=== PATIENT | female | born 1950 | race Caucasian/White ===

== ENCOUNTER 2021-04-28 08:37 | Outpatient (CLI) | payer MEDICARE, SELFPAY ==
--- NOTE | 2021-04-28 15:00 | CYSPIN_PTH ---
PATIENT: CARLOS MANUEL FINE LOC: [facility] U#:[id number] AGE/SX: 70/F ROOM: RE04/28/[address]: Dr. Silva Horton MD : 1950 BED: DIS: 04/28/2021 SPEC #: [id number] RECD: 04/29/21 07:24 STATUS: RANJAN ADAMES #: [id number] PEDRO: 04/28/21 15:[address]: Silva Horton DEPT: CYTOLOGY RECD BY: Kathrin Sutton Tissues: Urine Procedures: Pap Stain (control) Special Stain Group II Cytospin Fluid HEADER OPERATION: Not noted PRE-OP DIAGNOSIS: Gross hematuria TISSUE SUBMITTED: Urine for cytology DIAGNOSIS CYTOLOGY Urine for cytology (cytospin): Rare atypical urothelial cells present, favor reactive. Abundant squamous epithelial cells. Acute inflammatory cells and bacterial colonies. See comment. AM:rodo 04/29/2021 COMMENT Clinical correlation is suggested. CYTOLOGY STUDY Slides are reviewed. CYTOLOGY GROSS Received is 40 ml of cloudy yellow fluid labeled with the patient's name and and designated per the requisition as urine. Submitted for cytology preparation. / rodo 04/28/2021 TC:2 CPT: 24428
[2021-04-28 16:34] LABS: Cytology, Body Fluid / CSF SEE PATHOLOGY REPORT
== END 2021-04-28 23:59 | disposition home or self-care (01) ==
LOC: LABSPEC 04-29 08:41
PROVIDERS: Visit Provider Urology
DX: R31.0 Gross hematuria (principal)
CPT/HCPCS: 88108; 88313

== ENCOUNTER 2021-05-11 13:29 | Outpatient (CLI) | payer MEDICARE, SELFPAY ==
--- NOTE | 2021-05-11 13:31 | US_ITS ---
STUDY: ULTRASOUND OF THE FEMALE PELVIS - COMPLETE REASON FOR EXAM: Female, 70 years old. gross hematuria, pt states Dr is unsure of origin of the blood. PMB TECHNIQUE: Endovaginal. Transvaginal US was obtained to better visualized the ovaries. COMPARISON: None. FINDINGS: The uterus is anteverted and is tilted to the left side of the pelvis. The uterus measures 6.1 x 4.3 cm. There is a Nabothian cyst of the cervix. These appear complex or debris-filled. These measure 8 x 9 mm and 13 x 8 mm. The endometrium measures 2 mm in thickness, and is fluid distended. There is no demonstrated endometrial mass. There is no demonstrated myometrial mass. I.U.D. - The patient does not have an I.U.D. There is nonvisualization of the right ovary due to overlying bowel gas. There is nonvisualization of the left ovary due to overlying bowel gas. There is no fluid in the cul-de-sac. The urinary bladder is distended. This can suggest urinary retention. US/Pelvic (Non ) IMPRESSION: There is a Nabothian cyst of the cervix. These appear complex or debris-filled. Given the patient''s history, colposcopy is recommended. There is endometrial fluid. This is abnormal for the patient''s age if she is postmenopausal. Direct visualization is recommended to exclude an underlying mass. Electronically Signed: Julian Arnold MD at 17:04 EST ,
--- NOTE | 2021-05-11 13:44 | US_ITS ---
STUDY: ULTRASOUND OF THE FEMALE PELVIS - COMPLETE REASON FOR EXAM: Female, 70 years old. gross hematuria, pt states Dr is unsure of origin of the blood. PMB TECHNIQUE: Endovaginal. Transvaginal US was obtained to better visualized the ovaries. COMPARISON: None. FINDINGS: The uterus is anteverted and is tilted to the left side of the pelvis. The uterus measures 6.1 x 4.3 cm. There is a Nabothian cyst of the cervix. These appear complex or debris-filled. These measure 8 x 9 mm and 13 x 8 mm. The endometrium measures 2 mm in thickness, and is fluid distended. There is no demonstrated endometrial mass. There is no demonstrated myometrial mass. I.U.D. - The patient does not have an I.U.D. There is nonvisualization of the right ovary due to overlying bowel gas. There is nonvisualization of the left ovary due to overlying bowel gas. There is no fluid in the cul-de-sac. The urinary bladder is distended. This can suggest urinary retention. US/Transvaginal Non- IMPRESSION: There is a Nabothian cyst of the cervix. These appear complex or debris-filled. Given the patient''s history, colposcopy is recommended. There is endometrial fluid. This is abnormal for the patient''s age if she is postmenopausal. Direct visualization is recommended to exclude an underlying mass. Electronically Signed: Julian Arnold MD at 17:04 EST ,
== END 2021-05-11 23:59 | disposition home or self-care (01) ==
PROVIDERS: Referring Provider Urology; Visit Provider Urology
DX: N93.9 Abnormal uterine and vaginal bleeding, unspecified (principal)
CPT/HCPCS: 76830; 76856

== ENCOUNTER 2021-10-21 10:43 | Day surgery (SDC) | payer MEDICARE, SELFPAY ==
[2021-10-21 11:07] VITALS: BP 145/75; PULSE 72; RESP 16; TEMP 36.3; O2SAT 99; BMI 24.3
[2021-10-21] MEDS: Lactated Ringers 1,000 ML 15 ML IV (11:11)
[2021-10-21] MEDS: Cefazolin 2 GM in 0.9% Normal Saline 100 ML IV (14:02)
--- NOTE | 2021-10-21 14:05 | DCINST_ITS ---
Discharge Instructions Diet Discharge Diet: No restrictions Activity Discharge Activity: Return to Normal Activity May resume sexual activity in: No Restrictions Dressing / Incision Call your doctor if you observe: Fever of 101 or Higher, Inability to urinate and Inability to have a bowel movement Follow Up Care Please Follow Up With: Silva Horton MD When: Call office for appointment Test Results: Test results from this visit will be discussed in further detail at your follow- up appointment, if applicable. Discharge Plan Admission Attending Provider: Silva Horton Primary Care Provider: NAZARIO MUÑOZ Discharge Orders/Prescriptions Prescriptions: New oxycodone-acetaminophen [Percocet] 5-325 mg tablet 1 tab PO Q8H PRN (Reason: pain) 3 Days Qty: 10 0RF cephalexin [cephalexin] 500 mg capsule 500 mg PO Q12 3 Days Qty: 6 0RF phenazopyridine [Pyridium] 200 mg tablet 200 mg PO TID PRN PRN (Reason: Bladder Spasms) 7 Days Qty: 30 0RF Continued atorvastatin 10 mg Tablet 10 mg PO QHS paroxetine HCl [Paxil] 20 mg Tablet 20 mg PO QHS Referrals / Follow Up: NAZARIO MUÑOZ [Other] Disposition Disposition (needs filled in before D/C Order can be placed): Home, Self Care
--- NOTE | 2021-10-21 14:40 | CYSPIN_PTH ---
PATIENT: CARLOS MANUEL FINE LOC: [facility] [place] U#:[id number] AGE/SX: 71/F ROOM: RE10/21/[address]: Dr. Silva Horton MD : 1950 BED: DIS: 10/21/2021 SPEC #: [id number] RECD: 10/22/21 08:58 STATUS: RANJAN ADAMES #: [id number] PEDRO: 10/21/21 14:[address]: Silva Horton DEPT: CYTOLOGY RECD BY: Kathrin Sutton Tissues: A - Urine B - Urine Procedures: Pap Stain (control) Special Stain Group II Cytospin Fluid HEADER OPERATION: Not noted PRE-OP DIAGNOSIS: Gross hematuria, R31.0 TISSUE SUBMITTED: A. Urine, right renal pelvis, B. Left renal pelvic, urine DIAGNOSIS CYTOLOGY A. Urine, right renal pelvis (cytospin): A few clusters mildly atypical urothelial cells noted (Candace system category 3) See comment. B. 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 COMMENT The Candace System for urine cytology diagnostic categorization was used in the evaluation of this case. Correlation with clinical findings and appropriate follow up are necessary. Case has been reviewed in consultation with Dr. Pinto who concurs with the above diagnosis. IDC:AM CYTOLOGY STUDY Slides are reviewed. CYTOLOGY GROSS A. Received is 5 cc of clear colorless fluid labeled with the patient's name and and designated per the requisition as right renal pelvis. Submitted for cytology preparation. B. Received is 10 cc of clear colorless fluid labeled with the patient's name and and designated per the requisition as left renal pelvic. Submitted for cytology preparation. TC:0 CW:cc 10/22/21 CPT: 47284 x2
--- NOTE | 2021-10-21 14:40 | CYSPIN_PTH ---
PATIENT: CARLOS MANUEL FINE [place] [facility] [place][id number] AGE/SX: 71/F ROOM: RE10/21/[address]: Dr. Silva Horton MD : 1950 BED: DIS: 10/21/2021 SPEC #: [id number] RECD: 10/22/21 08:58 STATUS: RANJAN ADAMES #: [id number] PEDRO: 10/21/21 14:[address]: Silva Horton DEPT: CYTOLOGY RECD BY: Kathrin Sutton Tissues: A - Urine B - Urine Procedures: Pap Stain (control) Special Stain Group II Cytospin Fluid HEADER OPERATION: Not noted PRE-OP DIAGNOSIS: Gross hematuria, R31.0 TISSUE SUBMITTED: A. Urine, right renal pelvis, B. Left renal pelvic, urine DIAGNOSIS CYTOLOGY A. Urine, right renal pelvis (cytospin): A few clusters mildly atypical urothelial cells noted (Candace system category 3) See comment. B. 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 SJ:sj 10/22/21 COMMENT The Candace System for urine cytology diagnostic categorization was used in the evaluation of this case. Correlation with clinical findings and appropriate follow up are necessary. Case has been reviewed in consultation with Dr. Pinto who concurs with the above diagnosis. IDC:AM CYTOLOGY STUDY Slides are reviewed. CYTOLOGY GROSS A. Received is 5 cc of clear colorless fluid labeled with the patient's name and and designated per the requisition as right renal pelvis. Submitted for cytology preparation. B. Received is 10 cc of clear colorless fluid labeled with the patient's name and and designated per the requisition as left renal pelvic. Submitted for cytology preparation. TC:0 CW:cc 10/22/21 CPT: 46359 x2
[2021-10-21 14:57] VITALS: BP 145/75; BP 150/88; PULSE 79; RESP 16; TEMP 36.1; O2SAT 95
[2021-10-21 15:00] VITALS: BP 145/75; BP 153/77; PULSE 87; RESP 16; O2SAT 97
[2021-10-21 15:13] LABS: Cytology, Body Fluid / CSF SEE PATHOLOGY REPORT
[2021-10-21 15:13] LABS: Cytology, Body Fluid / CSF SEE PATHOLOGY REPORT
[2021-10-21 15:15] VITALS: BP 145/75; BP 151/83; PULSE 56; RESP 16; O2SAT 95
--- NOTE | 2021-10-21 15:18 | OP.PCM_ITS ---
Report of Operation Date of Procedure: 10/21/21 Pre-Operative Diagnosis: Gross hematuria Post-Operative Diagnosis: Same Surgery/Procedure Performed:: Cystoscopy, bilateral selective cytology, bilateral ureteroscopy, bilateral ureteral stent insertions Surgeon: Silva Horton Type of Anesthesia: General Specimen's removed: Bilateral renal pelvic washings for cytology Description of Procedure: The patient is a 71-year-old female with gross hematuria unknown etiology who presents for further evaluation. Informed consent was obtained. The patient was taken to the operating room and placed on the operating room table. Anesthesia monitored the head, neck, airway, IV access and vital signs throughout the case. Once anesthesia was appropriate ministered the patient was placed into dorsolithotomy position was prepped and draped in usual sterile fashion. The cystoscope was inserted through the urethra under direct visualization into the urinary bladder. The bladder mucosa was visualized once again and found to be within normal limits without evidence of mass, erythema or abnormality. At this time the left ureteral orifice was gently cannulated with a Pollick catheter which was easily advanced to 24 centimeters. Sterile saline was used to flush the renal pelvis and the washings were sent for cytologic evaluation. The Pollick catheter was removed and replaced with a 0.035 Glidewire. The flexible ureteroscope was then inserted over the guidewire. Access was obtained all the way to the mid ureter at which point to the ureter narrowed and access was unable to be obtained to the renal pelvis. There is a portion of the ureter that was directly visualized and was found to be within normal limits without evidence of mass or foreign body. The Glidewire was then used for placement of a 6 Mongolian 26 cm JJ stent. There was good curling in the renal pelvis as well as the urinary bladder. A brand-new Pollick catheter was then inserted on the patient's right side and advanced easily to 24 cm. Sterile saline washings were then taken and sent for cytologic evaluation from the right renal pelvis. A brand-new Glidewire was then inserted and the ureteroscope was placed over the wire with access obtained to the renal pelvis. There was some mild bleeding observed. There was no large renal mass identified. There was difficulty with visualization secondary to the bleeding present. The decision was made to place a ureteral stent and evaluate again later. A 6 Mongolian 26 cm JJ stent was inserted with good curling in the renal pelvis as well as the urinary bladder. The patient's bladder was emptied and the case was terminated. The patient was then awakened and taken to the recovery room in good condition. There were no complications during this procedure. Grafts/Implants Used: 6 x 26 cm JJ stents x2 Complications None Admit VTE Documentation VTE Present on Admission: Yes VTE Mechan Device Prophylaxis: SCD's VTE Pharm Prophylaxis ordered?: No Reason prophylaxis not ordered:: Treatment Not Indicated
[2021-10-21 15:27] VITALS: BP 145/75; BP 159/90; PULSE 56; RESP 16; TEMP 36.4; O2SAT 100
[2021-10-21 16:00] VITALS: BP 145/75
[2021-10-21] MEDS: Phenazopyridine 95 MG Tablet 190 MG PO (16:01)
== END 2021-10-21 16:45 | disposition home or self-care (01) ==
LOC: SDC 10:44 → AC 10:48
PROVIDERS: Referring Provider Urology; Visit Provider Urology
PROC: (CPT 52353; principal; 2021-10-21 12:10)
DX: R31.0 Gross hematuria (principal); N39.0 Urinary tract infection, site not specified; N39.46 Mixed incontinence; N95.2 Postmenopausal atrophic vaginitis; N94.11 Superficial (introital) dyspareunia; E78.00 Pure hypercholesterolemia, unspecified; K58.9 Irritable bowel syndrome, unspecified; F32.A Depression, unspecified; F41.9 Anxiety disorder, unspecified; Z79.899 Other long term (current) drug therapy
CPT/HCPCS: 52332; 00910; 76000; 87426; 88108; 88313; J7120; C2617; J2405

== ENCOUNTER 2021-10-28 10:40 | Day surgery (SDC) | payer MEDICARE, SELFPAY ==
[2021-10-28] MEDS: Lactated Ringers 1,000 ML 15 ML IV (10:45)
[2021-10-28 11:05] VITALS: BP 120/73; PULSE 78; RESP 16; TEMP 37.1; O2SAT 96; BMI 23.6
--- NOTE | 2021-10-28 12:11 | HP.PCM_ITS ---
HPI - General HPI Narrative CARLOS MANUEL FINE, is a 71 F who presents for diagnostic ureteroscopy for evaluation of gross hematuria after being unable to achieve access to the left renal pelvis last week. Informed consent has been obtained. [facility] Medical History (Updated 10/21/21 @ 14:[address] Silva Horton MD) Anxiety Bladder disease Gross hematuria Heartburn High cholesterol Non-smoker Post-menopausal Shortness of breath on exertion Wears glasses Home Medications atorvastatin 10 mg tablet 10 mg PO QHS 10/14/21 [History Last Taken Unknown] paroxetine HCl 20 mg tablet (Paxil) 20 mg PO QHS 10/14/21 [History Last Taken Unknown] phenazopyridine 200 mg tablet (Pyridium) 200 mg PO TID PRN PRN Bladder Spasms 7 days #30 tabs 10/21/21 [Rx Last Taken Unknown] ibuprofen 200 mg tablet 200 mg PO Q6H PRN Pain 10/26/21 [History Last Taken Unknown] Allergy/AdvReac Type Severity Reaction Status Date / Time No Known Allergies Allergy Verified 10/28/21 11:02 Surgical History (Updated 10/26/21 @ 08:16 by Mary Ro) History of cystoscopy History of cystoscopy Hx of colonoscopy Social History Smoking Status: Never smoker ROS Constitutional Constitutional: Denies anorexia, chills, fatigue, fever(s), lethargy or malaise Eyes Eyes: Reports systems reviewed and no addt'l complaints, except as documented ENT HEENT: Reports systems reviewed and no addt'l complaints, except as documented Cardiovascular Cardiovascular: Denies abdominal pain, chest pain, dizziness or dyspnea Respiratory/Chest Respiratory/Chest: Denies chest congestion, chest tightness, cough or dyspnea Gastrointestinal Gastrointestinal: Denies abdominal pain, nausea or vomiting Genitourinary Genitourinary: Reports hematuria Musculoskeletal Musculoskeletal: Reports systems reviewed and no addt'l complaints, except as documented Integumentary Integumentary: Reports systems reviewed and no addt'l complaints, except as documented Neurologic Neurologic: Reports systems reviewed and no addt'l complaints, except as documented Psychiatric Psychiatric: Reports systems reviewed and no addt'l complaints, except as documented Endocrine Endocrinology: Reports systems reviewed and no addt'l complaints, except as documented Hematologic/Lymphatic Hematologic/Lymphatic: Reports systems reviewed and no addt'l complaints, except as documented Allergic/Immunologic Allergic/Immunologic: Reports systems reviewed and no addt'l complaints, except as documented Vital Signs Vital Signs Vital Signs: 10/28/21 11:05 10/28/21 11:05 Temperature 98.7 F Temperature Source Temporal Pulse Rate 78 Respiratory Rate 16 Respiratory Pattern Normal Blood Pressure 120/73 Blood Pressure Mean 88 Blood Pressure Source Monitor Blood Pressure Position Semi-Fowlers Blood Pressure Location Left Arm Pulse Ox 96 Oxygen Delivery Method Room Air Weight Weight: 62.596 kg Body Mass Index (BMI) 23.6 Physical Exam Const alert, oriented x3 and no apparent distress General Appearance: cooperative, comfortable, well kempt and well developed HEENT normocephalic, head/scalp atraumatic, hearing grossly normal bilaterally, external ears normal, external nose normal and moist oral mucous membranes Eyes no scleral icterus General Eye: normal appearance of both eyes Neck supple General: normal visual inspection and trachea midline Lymph Lymphatic: no lymphedema noted Chest inspection of chest normal Chest: symmetrical chest wall rise Resp normal respiratory effort, normal air movement and no retractions Cardio regular rate and regular rhythm GI soft to palpation, non-tender and non-distended no CVA tenderness Back/Spine no CVA tenderness Extremity normal to inspection Skin no rashes or lesions noted, no wounds and skin turgor normal Neuro oriented x3, CN's II-XII intact bilaterally and moves all extremities Psych mental status grossly normal, thought process normal and cooperative Assessment & Plan Assessment/Plan (1) Gross hematuria: PLAN: Plan Cystoscopy, bilateral diagnostic ureteroscopy, bilateral ureteral stent removal Procedure Criteria Type of Procedure Procedure Type: Elective Elective Risks - COVID COVID Risk Discussion: The surgeon/proceduralist and patient have discussed in detail the risk of exposure to and/or potential harm posed by the COVID-19 virus with having a surgery/procedure at this time versus the risk of delaying the surgery/procedure. It is not possible to know either the risk of delaying the surgery or procedure or chance of getting an infection with perfect accuracy, but a joint decision was made between the patient and the surgeon/proceduralist to proceed at this time with the scheduled surgery/procedure as indicated on the consent form.
--- NOTE | 2021-10-28 12:14 | OP.PCM_ITS ---
Report of Operation Date of Procedure: 10/28/21 Pre-Operative Diagnosis: Gross hematuria Post-Operative Diagnosis: Same Surgery/Procedure Performed:: Cystoscopy, bilateral ureteroscopy, right retrograde pyelogram, bilateral ureteral stent removal Surgeon: Silva Horton Type of Anesthesia: General Description of Procedure: The patient is a 71-year-old female with gross hematuria who was taken to the operating room 1 week ago for bilateral selective cytology, bilateral ureteroscopy and stent insertions. We were unable to visualize the left kidney directly at that time due to ureteral narrowing. She now presents for cystoscopy with ureteral stent removal and bilateral ureteroscopy. Informed consent was obtained. The patient was taken to the operating room and placed on the operating room table. Anesthesia monitored the head, neck, airway, IV access and vital signs throughout the case. Once anesthesia was appropriate ministered, the patient was placed into dorsal lithotomy position was prepped and draped in usual sterile fashion. The cystoscope was inserted through the urethra under direct visualization into the urinary bladder. The right ureteral stent was grasped and pulled to the urethra where it was intubated with a 0.035 Glidewire. The stent was then removed. The ureteroscope was inserted over the guidewire with access all the way to the renal pelvis with easy advancement. Direct visualization of the renal pelvis and the calyces was performed. There is no evidence of mass, polyp or other abnormality present. The length of the ureter was visualized directly and also found to be within normal limits. Contrast was injected to be sure that all calyces were directly visualized. This process was then repeated on the patient's left side. Once again all c alyces were directly visualized without evidence of abnormality including mass, foreign body or abnormality. The entire length of the ureter on the left was directly visualized as well. At this time the patient's bladder was emptied and the case was terminated. The patient tolerated the procedure without complications. She was awakened and taken to the recovery room in good condition. Grafts/Implants Used: none Complications None Admit VTE Documentation VTE Present on Admission: Yes VTE Mechan Device Prophylaxis: SCD's
[2021-10-28] MEDS: Cefazolin 2 GM in 0.9% Normal Saline 100 ML IV (12:30)
[2021-10-28 12:57] VITALS: BP 113/60; BP 120/73; PULSE 72; RESP 16; TEMP 36.1; O2SAT 100
[2021-10-28 13:00] VITALS: BP 120/73; BP 121/59; PULSE 72; RESP 16; O2SAT 96
[2021-10-28 13:15] VITALS: BP 120/73; BP 121/61; PULSE 83; RESP 16; O2SAT 94
[2021-10-28 13:20] VITALS: BP 120/73; BP 122/65; PULSE 82; RESP 16; TEMP 36.4; O2SAT 96
--- NOTE | 2021-10-28 13:20 | DCINST_ITS ---
Discharge Instructions Diet Discharge Diet: No restrictions Activity Discharge Activity: Return to Normal Activity Dressing / Incision Call your doctor if you observe: Fever of 101 or Higher, Inability to urinate and Inability to have a bowel movement Follow Up Care Please Follow Up With: Silva Horton MD When: in few weeks in the office. call for appt Test Results: Test results from this visit will be discussed in further detail at your follow- up appointment, if applicable. Discharge Plan Admission Attending Provider: Silva Horton Primary Care Provider: NAZARIO MUÑOZ Discharge Orders/Prescriptions Prescriptions: New cephalexin [cephalexin] 500 mg capsule 500 mg PO Q12 3 Days Qty: 6 0RF Continued atorvastatin 10 mg Tablet 10 mg PO QHS paroxetine HCl [Paxil] 20 mg Tablet 20 mg PO QHS phenazopyridine [Pyridium] 200 mg tablet 200 mg PO TID PRN PRN (Reason: Bladder Spasms) 7 Days Qty: 30 0RF ibuprofen 200 mg Tablet 200 mg PO Q6H PRN (Reason: Pain) Referrals / Follow Up: NAZARIO MUÑOZ [Other] Disposition Disposition (needs filled in before D/C Order can be placed): Home, Self Care
[2021-10-28 13:54] VITALS: BP 120/73; BP 131/76; PULSE 77; RESP 16; TEMP 36.2; O2SAT 97
== END 2021-10-28 14:14 | disposition home or self-care (01) ==
LOC: SDC 10:41 → AC 10:42
PROVIDERS: Referring Provider Urology; Visit Provider Urology
PROC: (CPT 50980; principal; 2021-10-28 12:25)
DX: R31.0 Gross hematuria (principal); E78.00 Pure hypercholesterolemia, unspecified; Z78.0 Asymptomatic menopausal state; F41.9 Anxiety disorder, unspecified; Z79.899 Other long term (current) drug therapy
CPT/HCPCS: 50980; 00860; 76000; J7120; J2405